=== PATIENT | male | born 1980 | race Caucasian/White ===

== ENCOUNTER 2017-03-01 23:26 | Emergency (ER) | payer MEDICAID, MEDICARE ==
[2017-03-01 23:27] VITALS: BMI 21.1
[2017-03-02] MEDS ORDERED: Naproxen 550 mg Tab PO STA (00:33)
--- NOTE | 2017-03-02 01:35 | ED PDOC ---
Arrival/HPI - General Historian: Patient <Cait Anderson PA-C - Last Filed: 03/02/17 01:36> <Tomer Bryant - Last Filed: 03/02/17 01:45> - General Chief Complaint: Lower Extremity Problem/Injury Time Seen by Provider: 03/02/17 00:33 - History of Present Illness Narrative History of Present Illness (Text): 03/02/17 01:36 Patient reports twisting injury of the R ankle, when he fell down the stairs at 2 pm earlier today. Patient now complains of pain; can bear weight on ankle. Otherwise: (-) knee pain, (-) other injury. PMD Oswald (Cait Anderson PA-C) Past Medical History - Provider Review Nursing Documentation Reviewed: Yes - Past History Past History: No Previous - Infectious Disease Hx of Infectious Diseases: None - Tetanus Immunization Tetanus Immunization: Unknown - Past Medical History Past Medical History: No Previous - Musculoskeletal/Rheumatological Hx Falls: No - Gastrointestinal Hx Gastrointestinal Disorders: No - Genitourinary/Gynecological Hx Genitourinary Disorders: No Hx Reproductive Disorders: No - Psychiatric Hx Psychophysiologic Disorder: No Hx Anxiety: No Hx Depression: Yes Hx Emotional Abuse: No Hx Hallucinations: No Hx Panic Disorder: No Hx Post Traumatic Stress Disorder: No Hx Psychosis: No Hx Physical Abuse: No Hx Schizophrenia: No Hx Sexual Abuse: No Hx Substance Use: No - Surgical History Hx Orthopedic Surgery: Yes - Anesthesia Hx Anesthesia: Yes Hx Anesthesia Reactions: No Hx Malignant Hyperthermia: No - Suicidal Assessment Feels Threatened In Home Enviroment: No <Cait Anderson PA-C - Last Filed: 03/02/17 01:36> Family/Social History - Physician Review Nursing Documentation Reviewed: Yes Family/Social History: Unknown Family HX Smoking Status: Smoker Currrent Status Unknown Hx Alcohol Use: Yes Frequency of alcohol use: Socially Hx Substance Use: No Hx Substance Use Treatment: No <Cait Anderson PA-C - Last Filed: 03/02/17 01:36> Allergies/Home Meds <Cait Anderson PA-C - Last Filed: 03/02/17 01:36> <Tomer Bryant - Last Filed: 03/02/17 01:45> Allergies/Adverse Reactions: Allergies No Known Allergies Allergy (Verified 03/02/17 00:21) Review of Systems - Review of Systems Constitutional: Normal. absent: Fatigue, Weight Change, Fevers Musculoskeletal: Normal, Arthralgias. absent: Back Pain, Neck Pain Skin: Normal. absent: Rash, Pruritis, Skin Lesions <Cait Anderson PA-C - Last Filed: 03/02/17 01:36> Physical Exam <Cait Anderson PA-C - Last Filed: 03/02/17 01:36> <Tomer Bryant - Last Filed: 03/02/17 01:45> - Physical Exam Narrative Physical Exam (Text): 03/02/17 01:37 GENERAL APPEARANCE: Patient is awake, alert, oriented x 3, in no acute distress. SKIN: Warm, dry; (-) cyanosis. LOWER EXTREMITY: Ankle: (-) swelling, tenderness of the medial aspect of the ankle; (+) swelling and tenderness of the lateral ankle; (+) limited range of motion secondary to pain. Achilles tendon intact and nontender. Knee and foot : (-) injury. CARDIOVASCULAR: (+) distal pulse. NEUROLOGIC: (+) distal sensation. (Cait Anderosn PA-C) Vital Signs Temp Pulse Resp BP Pulse Ox 03/02/17 00:19 98.2 F 73 18 116/68 97 Medical Decision Making <Cait Anderson PA-C - Last Filed: 03/02/17 01:36> <Tomer Bryant - Last Filed: 03/02/17 01:45> ED Course and Treatment: 03/02/17 01:37 37 yo M presents to the emergency room after he injured his right ankle when he fell down the stairs. To rule out fracture likely sprain. Plan -X-ray right ankle -Naproxen for pain XR right ankle: Soft tissue swelling noted to the posterior ankle, no fracture, no dislocation, as read by PA Patient advised that official radiology read of XR is still pending and will call the patient if there is any discrepancy within 24 hours. Max wrap applied to the ankle. X-ray results discussed with the patient in great detail. Patient instructed on crutch walking. Patient advised to ice and elevate affected leg and take medications as prescribed. Patient states he fully agrees with and understands discharge instructions. States that he agrees with the plan and disposition. Verbalized and repeated discharge instructions and plan. I have given the patient opportunity to ask any additional questions. Follow up with primary care physician in 1-2 days without fail. Advised to take medication as prescribed. Return to the emergency room at any time for any new or worsening symptoms. (Cait Anderson PA-C) - RAD Interpretation Radiology Orders: 03/02/17 00:33 ANKLE RIGHT 3 VIEWS ROUTINE [RAD] Stat - Medication Orders Current Medication Orders: Discontinued Medications Naproxen (Anaprox Ds) 550 mg PO ONCE STA Stop: 03/02/17 00:34 Last Admin: 03/02/17 01:05 Dose: 550 mg - PA / PROTECTION SPECIALIST / Resident Statement MICHAEL has reviewed & agrees with the documentation as recorded. <Cait Anderson PA-C - Last Filed: 03/02/17 01:36> - PA / PROTECTION SPECIALIST / Resident Statement MICHAEL has reviewed & agrees with the documentation as recorded. <Tomer Bryant - Last Filed: 03/02/17 01:45> Disposition/Present on Arrival - Present on Arrival Any Indicators Present on Arrival: No History of DVT/PE: No History of Uncontrolled Diabetes: No Urinary Catheter: No History of Decub. Ulcer: No History Surgical Site Infection Following: None - Disposition Have Diagnosis and Disposition been Completed?: Yes Disposition Time: 01:34 Patient Plan: Discharge <Cait Anderson PA-C - Last Filed: 03/02/17 01:36> <Tomer Bryant - Last Filed: 03/02/17 01:45> - Disposition Diagnosis: Ankle sprain Disposition: HOME/ ROUTINE Patient Problems: Current Active Problems Problem Status Onset Ankle sprain Acute Condition: STABLE Discharge Instructions (ExitCare): Ankle Sprain (ED) Print Language: ITALIAN Prescriptions: Naproxen 500 mg PO BID #30 tab Referrals: Estee Akers MD [Primary Care Provider] - Follow up with primary Forms: WORK NOTE
[2017-03-02 02:16] VITALS: BP 119/75; PULSE 75; RESP 19; TEMP 98; O2SAT 99
--- NOTE | 2017-03-02 07:29 | RAD ---
PROCEDURE: Right Ankle Radiographs. HISTORY: trauma COMPARISON: None FINDINGS: BONES: Normal. No fracture. JOINTS: Normal. No osteoarthritis. Ankle mortise maintained. Talar dome intact SOFT TISSUES: Normal. OTHER FINDINGS: None. IMPRESSION: Normal right ankle radiographs.
== END 2017-03-02 02:33 | disposition home or self-care (01) ==
LOC: ED 23:26
DX: S93.401A Sprain of unspecified ligament of right ankle, initial encounter (principal); W10.8XXA Fall (on) (from) other stairs and steps, initial encounter; Y93.89 Activity, other specified; Y92.89 Other specified places as the place of occurrence of the external cause